=== PATIENT | male | born 1990 | race Caucasian/White ===

== ENCOUNTER → 2023-11-01 02:30 | Outpatient (CLI) | payer OTHER, SELFPAY ==
--- NOTE | 2023-11-01 | DI.MRI_ITS ---
Exam(s) MR LOWER JOINT RT WO EXAM: MR LOWER JOINT RT WO CLINICAL HISTORY: [place] AUTH# [id number] CHRONIC RT KNEE PAIN [id number] TECHNIQUE: Multiplanar multisequence MRI was performed. COMPARISON: No exams were available for comparison FINDINGS: BONES: There is no fracture or contusion pattern. JOINTS: Articular cartilage is unremarkable. No effusion is present. TENDONS: Extensor mechanism: Unremarkable. Medial retinaculum: Unremarkable. Lateral retinaculum: Unremarkable. Popliteus: Unremarkable. MUSCLES: Unremarkable. MENISCI: There is a tear of the body and posterior horn of the medial meniscus. The lateral meniscus is unremarkable. SOFT TISSUES: There is a popliteal cyst present. LIGAMENTS: Anterior Cruciate: Unremarkable. Posterior Cruciate: There is hyperintense signal seen within or adjacent to the posterior cruciate li gament. This may represent a partial tear or cyst. Medial Collateral:No evidence of a tear. Lateral Collateral: Unremarkable. OTHER: IMPRESSION: 1. Tear of the body and posterior horn of the medial meniscus. 2. Hyperintense signal seen within or adjacent to the PCL. This may represent a partial tear or cyst . 3. Popliteal cyst. DATA REPOSITORY:
== END ==
PROVIDERS: Visit Provider Family Medicine
DX: M23.221 Derangement of posterior horn of medial meniscus due to old tear or injury, right knee (principal)
CPT/HCPCS: 73721